=== PATIENT | female | born 1985 | race Caucasian/White ===

== ENCOUNTER 2020-09-10 15:52 | Emergency (ER) | payer OTHER, SELFPAY ==
--- NOTE | ~2020-09-10 | XR_ITS ---
XR chest 2V DATE: 09/10/2020 16:50 INDICATION: Covid-positive. Shortness of breath for 2 days. TECHNIQUE: PA and lateral views COMPARISON: 01/22/2006 2 view chest FINDINGS: Normal heart size. No hilar or mediastinal enlargement. The lungs are normally inflated and clear of infiltrate or consolidation. No pleural effusion or pulm onary vascular congestion or pneumothorax. IMPRESSION: No active cardiopulmonary disease Reviewed, dictated and finalized at location B.
--- NOTE | 2020-09-10 16:09 | ECG_ITS ---
Measurements Intervals [place] Rate: 74 P: 40 SD: 163 QRS: -5 QRSD: 85 T: 26 QT: 391 QTc: 434 Interpretive Statements SINUS RHYTHM INCOMPLETE RIGHT BUNDLE BRANCH BLOCK LOW QRS VOLTAGE IN PRECORDIAL LEADS BASELINE ARTIFACT- I, II, III, AVR, AVL, AVF, V1-V2 BORDERLINE ECG Electronically Signed On 09-10-2020 16:23:31 CDT by John Daniels D.O.
[2020-09-10 16:34] VITALS: BP 114/50; PULSE 75; RESP 20; TEMP 37; O2SAT 100
--- NOTE | 2020-09-10 18:56 | PC.NURSE ---
At 1856 patient walked to intake desk and states I have to go my kids cant wait any longer .
== END 2020-09-10 19:09 | disposition left against medical advice (07) ==
PROVIDERS: Emergency Provider Emergency Medicine
DX: U07.1 COVID-19 (principal)
CPT/HCPCS: 71046; 93005; 99199

== ENCOUNTER 2024-02-19 21:09 | Emergency (ER) | payer OTHER, SELFPAY ==
[2024-02-19 21:14] VITALS: BP 123/64; PULSE 89; RESP 18; TEMP 36.3; O2SAT 100
--- NOTE | 2024-02-19 21:28 | ED_ITS ---
HPI - Dental/Oral General Chief complaint: Dental/Oral Stated complaint: Tooth pain Time Seen by Provider: 02/19/24 21:25 History of Present Illness HPI Narrative: 38-year-old female presents to the emergency department for dental pain. Patient has known dental caries. States earlier today she was eating chips and salsa when she broke her right lower tooth. States she is concerned it is infected. She contacted her dentist but unfortunately cannot get an appointment until May. She denies difficulty swallowing, fever, difficulty breathing. Denies possibility of . Related Data Allergies Allergy/AdvReac Type Severity Reaction Status Date / Time No Known Allergies Allergy Verified 02/19/24 21:10 Review of Systems Review of Systems: All systems reviewed & are unremarkable except as noted in HPI and below PMFSH Social History Social History Gender identity (if verbalized by the patient): Female Exam Narrative: GENERAL: Well-appearing, well-nourished, and in no acute distress. HEAD: Normocephalic, atraumatic. EYES: EOMI. ENT: Nares clear, no rhinorrhea or epistaxis. Mucous membranes moist. Fractured to tooth #9 with caries, gingivitis to the lower gumline with inflamed and friable gingiva, no periapical abscess, no edema, no swelling to the posterior p harynx, patient tolerating secretions and speaking full sentences, no trismus, no submandibular swelling NECK: Supple. CHEST: Clear to auscultation. No respiratory distress. HEART: Regular rate and rhythm. No murmur heard. Normal peripheral pulses. EXTREMITIES: Normal range of motion. No edema. SKIN: Warm, dry, no rash. NEURO: No focal deficits. Alert and oriented x3 Course Vital Signs Vital signs: Vital Signs Temperature 97.4 F L 02/19/24 21:14 Pulse Rate 89 02/19/24 21:14 Respiratory Rate 18 02/19/24 21:14 Blood Pressure 123/64 02/19/24 21:14 Pulse Oximetry 100 02/19/24 21:14 Oxygen Delivery Room Air 02/19/24 21:14 Temperature 97.4 F L 02/19/24 21:14 Pulse Rate 89 02/19/24 21:14 Respiratory Rate 18 02/19/24 21:14 Blood Pressure 123/64 02/19/24 21:14 Pulse Oximetry 100 02/19/24 21:14 Oxygen Delivery Room Air 02/19/24 21:14 MDM - Dental/Oral MDM Narrative Medical decision making narrative: 38-year-old female with known dental caries presents emergency department for right lower dental pain and fracture after breaking her tooth while eating chips and salsa few hours prior to arrival. Vitals are stable. Exam is significant for a fracture to tooth #29, surrounding gingivitis. No periapical abscess. No submandibular edema, pharyngeal edema. She is tolerating secretions. No trismus. No evidence of deep space infection. Patient started on Augmentin, advised ibuprofen and [place] for breakthrough pain. She is given referrals for Dentistry. Return precautions discussed. She is agreeable with the plan verbalized understanding. Discharged in stable condition. Discharge Plan Discharge Clinical Impression: Dental caries Patient Disposition: Home, Self-Care Condition: Stable Instructions: Antibiotic Form, Acute Dental Trauma (ED), Toothache (ED) Additional Instructions: Take the antibiotics as directed. Take ibuprofen as needed for pain and [place] for breakthrough pain. Follow up with a dentist. Return to the emergency department if you develop difficulty swallowing, breathing, fever or other concerning symptoms. Patient Language: Japanese Prescriptions: New amoxicillin-pot clavulanate 875-125 mg tablet 1 tablet PO Q12H 7 Days Qty: 14 0RF hydrocodone-acetaminophen 5-325 mg tablet 1 tablet PO Q8H PRN (Reason: pain) Qty: 7 0RF Follow-up/Referrals: UNKNOWN,DOCTOR [Primary Care Provider] - Stand Alone Forms: Work/School Release IP
[2024-02-19] MEDS: AMOXICILLIN/CLAVULANATE K 875-125 MG TAB 1 TABLET PO (21:37)
[2024-02-19] MEDS: HYDROcodone/acetaminophen (*CRX) 5-325 MG TABLET 1 TAB PO (21:37)
== END 2024-02-19 21:41 | disposition home or self-care (01) ==
LOC: ANHED 21:28
PROVIDERS: Emergency Provider Physician Assistant
DX: K02.9 Dental caries, unspecified (principal)
CPT/HCPCS: 99283; A9270